=== PATIENT | female | born 1990 | race Two or more races ===

== ENCOUNTER 2020-03-07 18:48 | Emergency (ER) | payer SELFPAY ==
[~2020-03-07] VITALS: Ht 165.1 cm; Wt 72.6 kg
[2020-03-07] MEDS ORDERED: ALBUTEROL SULF HFA 90MCG INH 200DOSE IN PRN (22:30)
[2020-03-07] MEDS ORDERED: cefTRIAXone SOD 1,000 MG VL IM ONE (22:30)
[2020-03-07] MEDS ORDERED: ACETAMINOPHEN 325 MG TAB PO ONE ×2 (22:45→23:04)
[2020-03-07 23:30] VITALS: BP 118/68
== END 2020-03-07 23:46 | disposition home or self-care (01) ==
LOC: ER 18:48 → UNDOADMOB 20:36 → LDRP 20:36 → ER 23:46
DX: O26.892 Other specified pregnancy related conditions, second trimester (principal); O98.512 Other viral diseases complicating pregnancy, second trimester; J06.9 Acute upper respiratory infection, unspecified; Z20.828 Contact with and (suspected) exposure to other viral communicable diseases; Z3A.26 26 weeks gestation of pregnancy
CPT/HCPCS: 36415; 59025; 87426; 96372; 99283; C9803; J0696; U0003

== ENCOUNTER → 2020-04-01 | Outpatient (CLI) | payer SELFPAY | END | disposition home or self-care (01) | LOC: OB 14:42 | PROVIDERS: ATTEND Obstetrics & Gynecology | DX: Z34.93 Encounter for supervision of normal pregnancy, unspecified, third trimester (principal); Z3A.31 31 weeks gestation of pregnancy | CPT/HCPCS: 76805 ==

== ENCOUNTER 2020-06-01 18:09 | Observation (INO) | payer SELFPAY ==
[2020-06-01] MEDS ORDERED: PREN-96 OR (20:01)
== END 2020-06-01 20:20 | disposition home or self-care (01) ==
LOC: LDRP 18:09
PROVIDERS: ADMIT Obstetrics & Gynecology; ATTEND Obstetrics & Gynecology
DX: O36.8130 Decreased fetal movements, third trimester, not applicable or unspecified (principal); Z3A.38 38 weeks gestation of pregnancy
CPT/HCPCS: 59025; 76818; 81002; G0378

== ENCOUNTER 2020-06-05 22:21 | Inpatient (IN) | payer MEDICAID ==
[~2020-06-05] VITALS: Ht 165.1 cm; Wt 80.7 kg
[~2020-06-05 22:21] MED LIST: PREN-96 PO
[2020-06-05 23:18] LABS: Urine Bacteria FEW /hpf (None Seen); Urine Blood 2+ /uL (Negative); Urine WBC 42 /hpf (0 - 5)
[2020-06-06] MEDS ORDERED: D5W/LACTATED RINGERS 1,000 ML IV SCH (00:15)
[2020-06-06] MEDS ORDERED: LIDOCAINE 2%HCL (LOCAL ANESTH.) INJ 20ML MDV IJ ONE (00:15)
[2020-06-06] MEDS ORDERED: LACTATED RINGER'S 1,000 ML IV SCH (00:15)
[2020-06-06] MEDS ORDERED: PHISODERM TOP SOLN 240ML BTL TOP PRN (00:15)
[2020-06-06] MEDS ORDERED: WITCH HAZEL-GLYCERIN PAD TOP PRN (00:15)
[2020-06-06] MEDS ORDERED: LACT. RINGERS/OXYTOCIN 20UNITS 1,000 ML IV ONE (00:35)
[2020-06-06] MEDS ORDERED: METHYLERGONOVINE MALEATE 0.2 MG/ML AMP IM ONE (00:59)
[2020-06-06 01:10] LABS: Basophils # (auto) 0 10 ^3/uL (0-0.2); Eosinophils # (auto) 0.1 10 ^3/uL (0-0.8); Lymphocytes # (auto) 2.5 10 ^3/uL (0.4-5.4)
[2020-06-06 01:14] LABS: Basophils % (auto) 0.3 % (0.0-2.0); Eosinophils % (auto) 0.5 % (0.0-7.0); Hematocrit 32.3 % (36.0-46.0); Hemoglobin 10.7 g/dL (12.2-16.2); Lymphocytes % (auto) 17.8 % (10.0-50.0); Mean Corpuscular Hemoglobin 26.8 pg (28.0-32.0); Mean Corpuscular Hgb Conc. 33.2 g/dL (32.0-36.0); Monocytes # (auto) 0.8 10 ^3/uL (0-1.3); Monocytes % (auto) 5.5 % (0.0-12.0); Neutrophils # (auto) 10.9 10 ^3/uL (1.6-8.6); Neutrophils % (auto) 75.9 % (37.0-80.0); Platelet Count (auto) 266 10^3/uL (140-450); Red Blood Cells 3.99 10^6/uL (4.0-5.20); Red Cell Distribution Width 15.4 % (11.8-14.3); White Blood Cell 14.3 10^3/uL (4.4-10.8)
[2020-06-06] MEDS: DERMOPLAST 60ML BOTTLE TOP PRN (01:19)
[2020-06-06 01:26] LABS: INR 0.88 (0.9-1.15); Partial Thromboplastin Time 27.1 sec (23.0-31.2)
[2020-06-06] MEDS ORDERED: LACT. RINGERS/OXYTOCIN 20UNITS 1,000 ML IV SCH (01:27)
[2020-06-06] MEDS ORDERED: ACETAMINOPHEN 325 MG TAB PO PRN (01:30)
[2020-06-06 01:32] LABS: Albumin 2.9 g/dL (3.4-5.0); Potassium 3.4 mmol/L (3.5-5.1)
[2020-06-06 01:34] LABS: BUN/Creatinine Ratio 12.1
[2020-06-06 01:37] LABS: Bilirubin, Total 0.4 mg/dL (0.2-1.0); Total Protein 7.1 g/dL (6.4-8.2)
[2020-06-06] MEDS: IBUPROFEN 600 MG TAB PO PRN ×2 (02:45→18:45)
[2020-06-06 03:00] VITALS: BP 105/59
[2020-06-06 07:20] VITALS: BP 96/52
[2020-06-06 10:45] VITALS: BP 98/56
[2020-06-06 15:25] VITALS: BP 102/59
[2020-06-06 19:00] VITALS: BP 108/60
[2020-06-06 23:08] VITALS: BP 91/63
[2020-06-07 03:12] VITALS: BP 104/60
[2020-06-07 05:07] LABS: RPR Non Reactive (Non Reactive)
[2020-06-07 07:30] VITALS: BP 104/60
[2020-06-07] MEDS: IBUPROFEN 600 MG TAB PO PRN (08:51)
[2020-06-07] MEDS ORDERED: CEPH250C PO (09:03)
[2020-06-07 11:00] VITALS: BP 101/61
[2020-06-07] MEDS: DERMOPLAST 60ML BOTTLE TOP PRN (11:17)
== END 2020-06-07 12:10 | disposition home or self-care (01) | DRG 560 ==
LOC: OBSVTOIN 22:21 → LDRP 22:21
PROVIDERS: ADMIT Obstetrics & Gynecology; ATTEND Obstetrics & Gynecology
PROC: 10E0XZZ Delivery of Products of Conception, External Approach (ICD-10-PCS; principal; 2020-06-06)
DX: O32.6XX0 Maternal care for compound presentation, not applicable or unspecified (principal); Z37.0 Single live birth; Z20.822 Contact with and (suspected) exposure to COVID-19; Z3A.39 39 weeks gestation of pregnancy
CPT/HCPCS: 36415; 59025; 59409; 80053; 81001; 81002; 85025; 85610; 85730; 86592; 86703; 86762; 86850; 86900; 86901; 87340; 87426; 96365; 96366; G0378; J2590